=== PATIENT | male | born 1965 | race Caucasian/White ===

== ENCOUNTER 2020-12-14 19:32 | Emergency (ER) | payer OTHER, BC ==
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
[2020-12-14 19:49] VITALS: BP 148/99; PULSE 75
== END 2020-12-14 20:04 | disposition home or self-care (01) ==
LOC: MW.ED 19:32
DX: S16.1XXA Strain of muscle, fascia and tendon at neck level, initial encounter (principal); I10 Essential (primary) hypertension; Z79.899 Other long term (current) drug therapy; V49.40XA Driver injured in collision with unspecified motor vehicles in traffic accident, initial encounter
CPT/HCPCS: 99283

== ENCOUNTER 2020-12-28 20:59 | Emergency (ER) | payer OTHER, BC ==
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
[2020-12-28 22:49] VITALS: BP 122/75; PULSE 77
== END 2020-12-28 23:03 | disposition home or self-care (01) ==
LOC: MW.ED 20:59
DX: Z00.8 Encounter for other general examination (principal); I10 Essential (primary) hypertension
CPT/HCPCS: 72125; 72125-26; 99283-25

== ENCOUNTER 2023-05-11 08:29 | Day surgery (SDC) | payer BC ==
[~2023-05-11 08:29] MED LIST: Lactated Ringers 1,000 ML IV SCH
[2023-05-11] MEDS ORDERED: dexmedeTOMIDine HCl 200 MCG/2 ML SDV IV ONE (08:30)
[2023-05-11] MEDS ORDERED: Propofol 200 MG/20 ML SDV ONE (10:25)
[2023-05-11] MEDS ORDERED: Lactated Ringers 1,000 ML IV SCH (10:45)
[2023-05-11 11:45] VITALS: BP 100/64; PULSE 56
== END 2023-05-11 11:32 | disposition home or self-care (01) ==
LOC: MW.SDS 08:29
PROVIDERS: ATTEND Surgery
DX: Z12.11 Encounter for screening for malignant neoplasm of colon (principal); D12.0 Benign neoplasm of cecum; D12.3 Benign neoplasm of transverse colon; F32.A Depression, unspecified; E03.9 Hypothyroidism, unspecified; I10 Essential (primary) hypertension; Z79.890 Hormone replacement therapy; Z79.899 Other long term (current) drug therapy; Z90.49 Acquired absence of other specified parts of digestive tract
CPT/HCPCS: 45380; 45385; J2704; J7120; 00811; J3490